=== PATIENT | female | born 1970 | race Caucasian/White ===

== ENCOUNTER 2017-05-28 09:20 | Day surgery (SDC) | payer OTHER ==
[2017-05-28] MEDS ORDERED: MIDAZOLAM 1 MG/ML 2 ML INJ ×2 (11:26)
[2017-05-28] MEDS ORDERED: FENTAnyl 50 MCG/ML VIAL (11:26)
== END 2017-05-28 19:04 | disposition home or self-care (01) ==
LOC: GIL 09:20
DX: R19.4 Change in bowel habit (principal); K62.1 Rectal polyp; K64.4 Residual hemorrhoidal skin tags; K64.8 Other hemorrhoids; Z79.82 Long term (current) use of aspirin
CPT/HCPCS: 45380; 88309